=== PATIENT | female | born 2000 | race Two or more races ===

== ENCOUNTER 2023-08-10 21:09 | Emergency (ER) | payer MEDICAID ==
[~2023-08-10] VITALS: Ht 172.7 cm; Wt 100.0 kg
[2023-08-10 21:22] VITALS: BP 116/54; PULSE 85; RESP 15; O2SAT 100
[2023-08-10 22:23] LABS: COVID19 ANTIGEN SOFIA FIA NEGATIVE (NEGATIVE); Rapid Influenza A Negative (Negative); Rapid Influenza B Negative (Negative)
== END 2023-08-11 00:17 | disposition left against medical advice (07) ==
LOC: ER 21:09
DX: O26.891 Other specified pregnancy related conditions, first trimester (principal); R05.9 Cough, unspecified; J02.9 Acute pharyngitis, unspecified; H92.03 Otalgia, bilateral; Z3A.01 Less than 8 weeks gestation of pregnancy; Z20.822 Contact with and (suspected) exposure to COVID-19; Z53.21 Procedure and treatment not carried out due to patient leaving prior to being seen by health care provider
CPT/HCPCS: 36415; 87426; 87804